=== PATIENT | male | born 1960 | race Hispanic/Latino ===

== ENCOUNTER 2019-05-17 13:01 | Outpatient (CLI) | payer OTHER ==
[2019-05-17 13:53] LABS: Albumin 3.9 g/dL (3.9-5); Calcium 9.3 mg/dL (8.4-10.2)
== END 2019-05-17 13:02 | disposition home or self-care (01) ==
LOC: LAB 13:01
PROVIDERS: ATTEND Student in an Organized Health Care Education/Training Program
DX: N28.1 Cyst of kidney, acquired (principal); R94.4 Abnormal results of kidney function studies; N21.8 Other lower urinary tract calculus
CPT/HCPCS: 36415; 80048; 82040; 84100